=== PATIENT | male | born 1965 | race Caucasian/White ===

== ENCOUNTER → 2017-12-29 | Outpatient (CLI) | payer BC ==
--- NOTE | 2017-12-29 15:14 | CARD ---
MR#: [id number] Date of Study: 12/29/2017 Ordering Physician: ROCHELLE BASS, Referring Physician: ROCHELLE BASS, Tech: Missy Busby RAIMUNDO APPROVED REPORT EXAM: Two-dimensional and M-mode echocardiogram with Doppler and color Doppler. Other Information Quality : Technically LimitedHR: 75bpm Rhythm : NSRTechnically limited study due to body habitus. INDICATION Cardiomyopathy 2D DIMENSIONS RVDd3.0 (2.9-3.5cm)Left Atrium(2D)4.2 (1.6-4.0cm) IVSd1.0 (0.7-1.1cm)Aortic Root(2D)2.9 (2.0-3.7cm) LVDd6.1 (3.9-5.9cm)LVOT Diameter2.1 (1.8-2.4cm) PWd1.0 (0.7-1.1cm)LVDs4.8 (2.5-4.0cm) FS (%) 21.0 %SV77.6 ml LVEF(%)42.0 (>50%) M-Mode DIMENSIONS Left Atrium(MM)3.75 (2.5-4.0cm)Aortic Root3.36 (2.2-3.7cm) Aortic Valve AoV Peak Adi.220.6cm/sAoV VTI46.6cm AO Peak GR.19.5mmHgLVOT Peak Adi.106.9cm/s LVOT VTI 22.10cmAO Mean GR.12mmHg REBECCA (VMAX)1.98iv0QRC (VTI)1.70cm2 Mitral Valve MV E Kjkcqogu880.8cm/sMV E Peak Gr.5mmHg MV DECEL [id number] A Rpwfkout75.7cm/s MV E Mean Gr.2mmHgE/A Ratio1.4 MV A Ynkbwpkq60so Pulmonary Valve PV Peak Ulvzwhah891.1cm/sPV Peak Grad.10mmHg Tricuspid Valve TR P. Vcpapbyw926ey/sRAP UIKHCKHA1kjXn TR Peak Gr.49ybVuXLWI52stUe LEFT VENTRICLE The Left Ventricle is mildly dilated. There is normal left ventricular wall thickness. The systolic f unction is mildly impaired. The Ejection Fraction is 40-45%. There is global hypokinesis of the left ventricle with septal motion suggestive of conduction defect. Transmitral Doppler flow pattern is Gra de I-abnormal relaxation pattern. RIGHT VENTRICLE The right ventricle is normal size. There is normal right ventricular wall thickness. The right ventr icular systolic function is normal. ATRIA The left atrium size is normal. The right atrium size is normal. The interatrial septum is intact wit h no evidence for an atrial septal defect or patent foramen ovale as noted on 2-D or Doppler imaging. Lipomatous hypertrophy noted. AORTIC VALVE The aortic valve is trileaflet. The aortic valve is normal in structure and function. Doppler and Col or Flow revealed no significant aortic regurgitation. There is mild valvular aortic stenosis. MITRAL VALVE The mitral valve is normal in structure and function. There is no evidence of mitral valve prolapse. There is no mitral valve stenosis. Doppler and Color Flow revealed no mitral valve regurgitation note d. TRICUSPID VALVE The tricuspid valve is normal in structure and function. Doppler and Color Flow revealed trace tricus pid regurgitation. The PA pressure was estimated at 36 mmHg. There is no tricuspid valve prolapse or vegetation. There is no tricuspid valve stenosis. PULMONIC VALVE Not well visualized. Doppler and Color Flow revealed no pulmonic valvular regurgitation. There is no pulmonic valvular stenosis. GREAT VESSELS The aortic root is normal in size. The ascending aorta is normal in size. The IVC is normal in size a nd collapses >50% with inspiration. PERICARDIAL EFFUSION There is no evidence of significant pericardial effusion. Fat pad noted. Critical Notification Critical Value: No <Conclusion> The systolic function is mildly impaired. The Ejection Fraction is 40-45%. There is global hypokinesis of the left ventricle with septal motion suggestive of conduction defect. Doppler and Color Flow revealed trace tricuspid regurgitation. The PA pressure was estimated at 36 m mHg. Signed by : Rochelle Bass, Electronically Approved : 12/29/2017 15:13:45
== END | disposition home or self-care (01) ==
LOC: ECHO 12:43
PROVIDERS: ATTEND Internal Medicine Cardiovascular Disease
DX: I35.0 Nonrheumatic aortic (valve) stenosis (principal)
CPT/HCPCS: 93306

== ENCOUNTER → 2020-06-05 | Outpatient (CLI) | payer BC ==
--- NOTE | 2020-06-05 17:15 | CARD ---
MR#: [id number] Date of Study: 06/05/2020 Ordering Physician: ROCHELLE BASS, Referring Physician: ROCHELLE BASS, Tech: Faiza Buchanan, [facility] APPROVED REPORT EXAM: Two-dimensional and M-mode echocardiogram with Doppler and color Doppler. Other Information Quality : AverageHR: 74bpm INDICATION Cardiomyopathy NICM RISK FACTORS Hypertension Hyperlipidemia Diabetes 2D DIMENSIONS RVDd3.6 (2.9-3.5cm)Left Atrium(2D)3.7 (1.6-4.0cm) IVSd0.8 (0.7-1.1cm)Aortic Root(2D)3.1 (2.0-3.7cm) LVDd6.3 (3.9-5.9cm)LVOT Diameter2.0 (1.8-2.4cm) PWd1.0 (0.7-1.1cm)LVDs3.9 (2.5-4.0cm) FS (%) 38.3 %SV134.1 ml Aortic Valve AoV Peak Adi.232.2cm/sAoV VTI50.6cm AO Peak GR.21.6mmHgLVOT Peak Adi.149.4cm/s LVOT VTI 31.16cmAO Mean GR.13mmHg REBECCA (VMAX)2.49lt1NYV (VTI)2.01cm2 Mitral Valve MV E Zonqjkvu69.9cm/sMV DECEL BLNI312pz MV A Mthrfgqd67.3cm/sE/A Ratio1.2 Pulmonary Valve PV Peak Jebddufx319.7cm/sPV Peak Grad.4mmHg Tricuspid Valve TR P. Hwnymukh354pw/sRAP VHKDKVQG4oxHr TR Peak Gr.54ntBjFBCW90rnRu Pulmonary Vein S1 Bphioule15.6cm/sD2 Rxvktvci11.7cm/s LEFT VENTRICLE The Left Ventricle is mildly dilated. There is normal left ventricular wall thickness. The left ventr icular systolic function is low normal. The Ejection Fraction is estimated at 50%. There is normal L V segmental wall motion. Transmitral Doppler flow pattern is Grade II-pseudonormal filling dynamics. RIGHT VENTRICLE The right ventricle is normal size. There is normal right ventricular wall thickness. The right ventr icular systolic function is normal. ATRIA The left atrium is borderline dilated. The right atrium size is normal. The interatrial septum is int act with no evidence for an atrial septal defect or patent foramen ovale as noted on 2-D or Doppler i maging. AORTIC VALVE The aortic valve is thickened but opens well. Doppler and Color Flow revealed trace aortic regurgitat ion. There is no significant aortic valvular stenosis. Calculated aortic valve area is 2.4 cm2 with m aximum pressure gradient of 22 mmHg and mean pressure gradient of 13 mmHg. MITRAL VALVE The mitral valve is normal in structure and function. There is no evidence of mitral valve prolapse. There is no mitral valve stenosis. Doppler and Color Flow revealed no mitral valve regurgitation note d. TRICUSPID VALVE The tricuspid valve is normal in structure and function. Doppler and Color Flow revealed trace tricus pid regurgitation with an estimated PAP of 42 mmHg. There is no tricuspid valve stenosis. PULMONIC VALVE The pulmonic valve is not well visualized. Doppler and Color Flow revealed no pulmonic valvular regur gitation. GREAT VESSELS The aortic root is normal in size. The ascending aorta is normal in size. The IVC is normal in size a nd collapses >50% with inspiration. PERICARDIAL EFFUSION There is no evidence of significant pericardial effusion. Critical Notification Critical Value: No <Conclusion> The Left Ventricle is mildly dilated. The left ventricular systolic function is low normal. The Ejection Fraction is estimated at 50%. Doppler and Color Flow revealed trace aortic regurgitation. There is no significant aortic valvular stenosis. Doppler and Color Flow revealed no mitral valve regurgitation noted. Doppler and Color Flow revealed trace tricuspid regurgitation with an estimated PAP of 42 mmHg. Signed by : Best Eric MD Electronically Approved : 06/05/2020 17:14:40
== END ==
LOC: ECHO 09:41
PROVIDERS: ATTEND Internal Medicine Cardiovascular Disease
DX: I42.8 Other cardiomyopathies (principal); I42.9 Cardiomyopathy, unspecified
CPT/HCPCS: 93306